=== PATIENT | female | born 1960 ===

== ENCOUNTER 2025-04-04 04:44 | Emergency (ER) | payer MEDICARE ==
[~2025-04-04] VITALS: Ht 167.6 cm; Wt 59.0 kg
== END 2025-04-04 12:30 ==
LOC: ED 04:44
DX: I46.9 Cardiac arrest, cause unspecified (principal); I10 Essential (primary) hypertension; F41.9 Anxiety disorder, unspecified; G40.909 Epilepsy, unspecified, not intractable, without status epilepticus; I25.2 Old myocardial infarction; Z86.73 Personal history of transient ischemic attack (TIA), and cerebral infarction without residual deficits; Z88.8 Allergy status to other drugs, medicaments and biological substances; Z91.013 Allergy to seafood